=== PATIENT | female | born 1975 | race African-American/Black ===

== ENCOUNTER 2016-05-30 16:57 | Outpatient (CLI) | payer OTHER ==
[2016-05-30 17:17] LABS: PLATELET COUNT 232 K/uL (152-353)
[2016-05-30 17:45] LABS: POTASSIUM 3.9 mmol/L (3.6-5.2); SODIUM 133 mmol/L (136-145)
== END 2016-05-30 19:12 | disposition home or self-care (01) ==
LOC: LABW 16:57
PROVIDERS: Family Medicine
DX: R42 Dizziness and giddiness (principal); F41.8 Other specified anxiety disorders
CPT/HCPCS: 36415; 80053; 84439; 84443; 85027

== ENCOUNTER 2016-06-19 11:55 | Outpatient (CLI) | payer OTHER | END 2016-06-19 12:55 | disposition home or self-care (01) | LOC: RESP 11:55 | DX: R07.9 Chest pain, unspecified (principal) ==